=== PATIENT | male | born 1970 | race Caucasian/White ===

== ENCOUNTER 2019-07-13 10:00 | Day surgery (SDC) | payer BC ==
[2019-07-13] VITALS (12 sets, daily range): BP systolic 123–156; BP diastolic 65–89; PULSE 74–84; RESP 15–20; Ht 180.3 cm; Wt 125.0 kg
[~2019-07-13] VITALS: Ht 180.3 cm; Wt 125.0 kg
[~2019-07-13 10:00] MED LIST: AMLO2.5T78 PO
[2019-07-13] MEDS ORDERED: SOD CHLORIDE 0.9% 1,000 ML IV ONE (11:00)
[2019-07-13] MEDS ORDERED: CEFAZOLIN 2 GM/50 ML (PMX) 50 ML IVPB ONE (11:00)
[2019-07-13] MEDS ORDERED: DIPHENHYDRAMINE 50 MG INJ IV PRN (11:30)
[2019-07-13] MEDS ORDERED: FENTAnyl 50 MCG/ML VIAL IV PRN ×3 (11:30)
[2019-07-13] MEDS ORDERED: KETOROLAC 30 MG INJ IV PRN (11:30)
[2019-07-13] MEDS ORDERED: OXYCODONE/ACETAMINOPHEN (5/325) TAB PO PRN ×2 (11:30)
[2019-07-13] MEDS ORDERED: MEPERIDINE 25 MG INJ IV PRN (11:30)
[2019-07-13] MEDS ORDERED: ONDANSETRON 4 MG INJ IV PRN (11:30)
[2019-07-13] MEDS ORDERED: HYDROmorphONE 1 MG/5 ML IV SYRINGE IV PRN ×3 (11:30)
--- NOTE | 2019-07-13 11:30 | PREAC ---
Date/Time of Note Date/Time of Note DATE: 07/13/19 TIME: 11:29 Anesthesia Eval and Record Evaluation Time Pre-Procedure Interview DATE: 07/13/19 TIME: 11:29 Age 49 Sex male NPO: 8 hrs Preoperative diagnosis left inguinal hernia Planned procedure open repair of left inguinal hernia with mesh Past Medical History Past Medical History: Includes Cardio: HTN GI: Morbid obesity Surgery & Anesthesia Issues No known issue Meds Anticoagulation: No Beta Peter within 24 hr: No Reason Beta Peter not given: Pt. not on B-Peter Reported Medications Amlodipine Besylate* (Amlodipine Besylate*) 2.5 Mg Tablet, 2.5 MG PO DAILY 07/13/19 Current Medications Cefazolin Sodium/ Dextrose 50 ml @ 100 mls/hr PRE-OP ONCE IVPB ; Start 07/13/19 at 11:00; Stop 07/13/19 at 11:29 Sodium Chloride 1,000 ml @ 75 mls/hr [id number] ONCE IV Last administered on 07/13/19at 10:55; Admin Dose 75 MLS/HR; Start 07/13/19 at 11:00; Stop 07/14/19 at 00:19 Meds reviewed: Yes Allergies Coded Allergies: No Known Allergy (Unverified , 07/13/19) Allergies Reviewed: Yes Labs/Studies Labs Reviewed: Reviewed by anesthesiologist Result Diagram: 07/13/19 1051 07/13/19 1051 Laboratory Tests 07/13/19 10:51 test: N/A Studies: ECG (n/a), CXR (n/a) Pre-procedure Exam Last vitals Vital Signs Date Temp Pulse Resp B/P (MAP) Pulse Ox O2 O2 Flow FiO2 Time Delivery Rate 07/13/19 98.1 75 16 138/86 95 11:05 (103) Airway: Adequate mouth opening Mallampati: Mallampati II Teeth: Normal Lung: Normal Heart: Normal ASA Physical Status ASA physical status: 2 Emergency: None Planned Anesthetic General/MAC: ETT Nerve block: TAP (left) Planned Pain Management Single shot nerve block Pre-operative Attestations Prior to commencing anesthesia and surgery, the patient was re-evaluated, there was verification of: *The patient's identity *The results of appropriate recent lab work and preoperative vital signs *The above evaluation not changing prior to induction *Anesthetic plan, risk benefits, alternative and complications discussed with patient/family; questions answered; patient/family understands, accepts and wishes to proceed. RHIANNA BONILLA MD Jul 13, 2019 11:30
[2019-07-13] MEDS ORDERED: NEOSTIGMINE 3 MG/3 ML SYRINGE ONE (11:33)
[2019-07-13] MEDS ORDERED: CEFAZOLIN 1 GM INJ ONE (11:33)
[2019-07-13] MEDS ORDERED: DESFLURANE 15 MIN ONE (11:33)
[2019-07-13] MEDS ORDERED: PROPOFOL 20 ML ONE (11:33)
[2019-07-13] MEDS ORDERED: GLYCOPYRROLATE 0.4 MG INJ ONE (11:33)
[2019-07-13] MEDS ORDERED: MIDAZOLAM 1 MG/ML 2 ML INJ ONE (11:33)
[2019-07-13] MEDS ORDERED: ROCURONIUM 50 MG INJ ONE (11:33)
[2019-07-13] MEDS ORDERED: ROPIVACAINE 0.5 % 30 ML VIAL ONE (11:34)
[2019-07-13] MEDS ORDERED: ONDANSETRON 4 MG INJ ONE (11:34)
[2019-07-13] MEDS ORDERED: METOCLOPRAMIDE 10 MG INJ ONE (11:34)
[2019-07-13] MEDS ORDERED: KETOROLAC 30 MG INJ ONE (11:37)
[2019-07-13] MEDS ORDERED: SUCCINYLCHOLINE CHLORIDE 100 MG/5 ML SYG IV ONE (11:56)
[2019-07-13] MEDS ORDERED: HYDROmorphONE 2 MG/ML SYG ONE (12:12)
[2019-07-13] MEDS ORDERED: LIDOCAINE 2% (SDV) 5 ML INJ ONE (12:14)
[2019-07-13] MEDS ORDERED: POLYMYXIN/BACITRACIN 1L IRRIG IRR ONE (12:24)
--- NOTE | 2019-07-13 12:57 | OPR ---
Date/Time of Note Date/Time of Note DATE: 07/13/19 TIME: 12:53 Operative Report Procedure Date: Jul 13, 2019 Preoperative Diagnosis left incarcerated inguinal hernia Postoperative Diagnosis same Operation/Procedure Performed open left incarcerated inguinal hernia repair with large ultrapro hernia system mesh Surgeon see signature line Vegetable Inspector none Anesthesia Type: general Estimated Blood Loss: 0 - 10 ml's Transfusion none Specimen none Grafts/Implants none Complications none Pt Condition Post Procedure: stable Indications This is a 49-year-old male with a left incarcerated inguinal hernia. He request surgical repair. Risks alternatives benefits and personally discussed the patient. In particular due to his increased BMI of 38.4 patient was told that his recurrence rate is fairly high if he gains more weight and is encouraged to lose current weight. Patient expressed understanding and consents to the operat ion. Procedure Description Patient taken to the OR and prepped and draped in usual sterile fashion. Surgic al timeout is performed. IV antibiotics given. Left inguinal oblique incision was made with the 10 blade. Dissection with cautery was carried onto the very thick subcutaneous tissue down to the external oblique fascia. The externally fascia is open with a 15 blade. This incision is extended medially inferiorly lateral superiorly with Metzenbaum scissors. Cord structures identified encircled with a Powers drain. Incarcerated indirect hernia was identified and manually reduced after lysis of adhesions. The disc portion of the ultra pro hernia system mesh was secured in place the running 0 Prolene from the pubic tubercle along the shelving edge of the inguinal ligament. Superiorly the disc is secured to the internal oblique with interrupted 3-0 Vicryl. Onlay mesh was secured in a similar fashion with a running 0 Prolene from the pubic tubercle along the shelving edge of inguinal limit. Straps are created reapproximate around the cord structures with interrupted 0 Prolene to recreate the inguinal ring. Onlay mesh secured to the internal oblique with interrupted 3-0 Vicryl. Externally oblique fascia is closed with 3-0 Vicryl. Jaron's fascia was closed with interrupted 3-0 Vicryl. Skin is closed using inzorb absorbable skin stapler. A tap block was provided by the anesthesiologist at the beginning the case. Steri-Strips and dry dressings were applied. Masood RANKIN Jul 13, 2019 12:57
[2019-07-13] MEDS ORDERED: HYDROCODONE/APAP (5/325) TAB PO ONE (13:00)
--- NOTE | 2019-07-13 14:37 | PAC ---
Date/Time of Note Date/Time of Note DATE: 07/13/19 TIME: 14:36 Post-Anesthesia Notes Post-Anesthesia Note Last documented vital signs Vital Signs Date Temp Pulse Resp B/P (MAP) Pulse Ox O2 O2 Flow FiO2 Time Delivery Rate 07/13/19 98.0 14:25 07/13/19 84 18 123/67 93 Room Air 13:29 (85) Activity: WNL Respiratory function: WNL Cardiovascular function: WNL Mental status: Baseline Pain reasonably controlled: Yes Hydration appropriate: Yes Nausea/Vomiting absent: No RHIANNA BONILLA MD Jul 13, 2019 14:37
== END 2019-07-13 14:05 | disposition home or self-care (01) ==
LOC: SDS 10:00
PROVIDERS: ATTEND Surgery
DX: K40.30 Unilateral inguinal hernia, with obstruction, without gangrene, not specified as recurrent (principal); I10 Essential (primary) hypertension
CPT/HCPCS: 49507; 80053; 85025; 85610; 85730; C1781; J0690; J1170; J1885; J2250; J2405; J2710; J2765; J2795; Z7512; Z7610

== ENCOUNTER 2019-07-17 11:54 | Day surgery (SDC) | payer BC ==
[~2019-07-17] VITALS: Ht 180.3 cm; Wt 122.9 kg
[2019-07-17] VITALS (11 sets, daily range): BP systolic 108–154; BP diastolic 56–92; PULSE 77–94; RESP 15–23; Ht 180.3 cm; Wt 122.9 kg
[~2019-07-17 11:54] MED LIST changes: +CEFAZOLIN 2 GM/50 ML (PMX) 50 ML IVPB ONE; +SOD CHLORIDE 0.9% 1,000 ML IV SCH
[2019-07-17] MEDS ORDERED: POLYMYXIN/BACITRACIN 1L IRRIG ONE (14:17)
[2019-07-17] MEDS ORDERED: BUPIVACAINE 0.25% (MPF) 30 ML INJ ONE (14:17)
[2019-07-17] MEDS ORDERED: SOD CHLORIDE 0.9% 1,000 ML IV SCH (14:38)
[2019-07-17] MEDS ORDERED: KETOROLAC 15 MG INJ IV PRN (15:00)
[2019-07-17] MEDS ORDERED: HYDROCODONE/APAP (5/325) TAB PO ONE ×2 (15:00→16:30)
[2019-07-17] MEDS ORDERED: NALOXONE (0.4 MG/ML) INJ IV PRN (15:00)
[2019-07-17] MEDS ORDERED: HYDROmorphONE 0.2 MG/ML PCA IV SCH (15:00)
[2019-07-17] MEDS ORDERED: CEFAZOLIN 2 GM/50 ML (PMX) 50 ML IVPB SCH (15:00)
--- NOTE | 2019-07-17 15:07 | PREAC ---
Date/Time of Note Date/Time of Note DATE: 07/17/19 TIME: 15:05 Anesthesia Eval and Record Evaluation Time Pre-Procedure Interview DATE: 07/17/19 TIME: 15:05 Age 49 Sex male NPO: 8 hrs Preoperative diagnosis ventral hernia Planned procedure lap ventral hernia repair Past Medical History Past Medical History: Includes Cardio: HTN Pulm: Sleep Apnea (suspected ) GI: Obesity Surgery & Anesthesia Issues No known issue Meds Anticoagulation: No Beta Peter within 24 hr: No Reason Beta Peter not given: Pt. not on B-Peter Reported Medications Amlodipine Besylate* (Amlodipine Besylate*) 2.5 Mg Tablet, 2.5 MG PO DAILY 07/13/19 Current Medications Sodium Chloride 1,000 ml @ 75 mls/hr [id number] IV Last administered on 07/17/19at 12:52; Admin Dose 75 MLS/HR; Start 07/17/19 at 07:00 Meds reviewed: Yes Allergies Coded Allergies: No Known Allergy (Unverified , 07/17/19) Allergies Reviewed: Yes Labs/Studies Labs Reviewed: Reviewed by anesthesiologist test: N/A Pre-procedure Exam Last vitals Vital Signs Date Temp Pulse Resp B/P (MAP) Pulse Ox O2 O2 Flow FiO2 Time Delivery Rate 07/17/19 98.2 91 16 154/88 95 Room Air 13:17 (110) Airway: Adequate mouth opening, Adequate thyromental dist Mallampati: Mallampati IV Teeth: Normal Lung: Normal Heart: Normal ASA Physical Status ASA physical status: 2 Emergency: None Pre-operative Attestations Prior to commencing anesthesia and surgery, the patient was re-evaluated, there was verification of: *The patient's identity *The results of appropriate recent lab work and preoperative vital signs *The above evaluation not changing prior to induction *Anesthetic plan, risk benefits, alternative and complications discussed with patient/family; questions answered; patient/family understands, accepts and wishes to proceed. MIRIAM GIRALDO DO Jul 17, 2019 15:07
[2019-07-17] MEDS ORDERED: LIDOCAINE 2% (SDV) 5 ML INJ ONE (15:17)
[2019-07-17] MEDS ORDERED: ROCURONIUM 50 MG INJ ONE (15:17)
[2019-07-17] MEDS ORDERED: MIDAZOLAM 1 MG/ML 2 ML INJ ONE (15:17)
[2019-07-17] MEDS ORDERED: PROPOFOL 20 ML ONE (15:17)
[2019-07-17] MEDS ORDERED: ROPIVACAINE 0.5 % 30 ML VIAL ONE (15:24)
[2019-07-17] MEDS ORDERED: HYDROmorphONE 1 MG/5 ML IV SYRINGE IV PRN ×3 (15:30)
[2019-07-17] MEDS ORDERED: METOCLOPRAMIDE 10 MG INJ IV PRN (15:30)
[2019-07-17] MEDS ORDERED: ONDANSETRON 4 MG INJ IV PRN (15:30)
[2019-07-17] MEDS ORDERED: LABETALOL HCL 20MG INJ IV PRN (15:30)
[2019-07-17] MEDS ORDERED: ROPIVACAINE 0.2% 20 ML VIAL ONE (15:31)
[2019-07-17] MEDS ORDERED: CEFAZOLIN 1 GM INJ ONE (15:33)
[2019-07-17] MEDS ORDERED: SUGAMMADEX SODIUM 200 MG/2 ML VIAL IV ONE (16:10)
--- NOTE | 2019-07-17 16:10 | OPR ---
Date/Time of Note Date/Time of Note DATE: 07/17/19 TIME: 16:07 Operative Report Procedure Date: Jul 17, 2019 Preoperative Diagnosis incarcerated ventral hernia Postoperative Diagnosis same Operation/Procedure Performed 1. laparoscopic incarcerated ventral hernia repair 2. implantation of 15 x 15 cm polypropylene mesh Surgeon see signature line Software Support Engineer Dean Wright Anesthesia Type: general Estimated Blood Loss: 0 - 10 ml's Transfusion none Specimen none Grafts/Implants none Complications none Pt Condition Post Procedure: stable Indications This is a 49-year-old male with a large incarcerated ventral hernia. He request surgical repair. Risks alternatives benefits and personal were discussed the patient. Patient expressed understanding and consents to the operation. Procedure Description Patient is taken to the OR and prepped and draped in usual sterile fashion. Surgical time was performed. IV antibiotics given. Left upper quadrant 5 mm transverse incision was made in the left subcostal midclavicular line. Using a 5 mm optical trocar optical entry is performed. Pneumoperitoneum is established. Left flank 12 mm optical trochars placed under direct visualization. Left lower quadrant 5 mm optical trochars placed under direct visualization. Upon initial inspection there is incarcerated contents. Lap scopic lysis of adhesions performed. This allowed manual reduction of the incarcerated hernia contents. The hernia defect was then identified. The defect was closed primarily using a #1 Vicryl suture using Endo Close and laparoscopic techniques. After primary closure of the defect underlay mesh was 15 x 15 cm polypropylene mesh was secured in place with secure strap. Approximately 4-5 centers of coverage in all directions were ensured. Good hemostasis status. All ports removed under direct visualization. Skin incisions were closed with skin tootie. [facility]. Dry dressings were applied. Masood RANKIN Jul 17, 2019 16:10
[2019-07-17] MEDS ORDERED: FENTAnyl 50 MCG/ML VIAL ONE (16:20)
[2019-07-17] MEDS ORDERED: KETOROLAC 30 MG INJ ONE (16:21)
--- NOTE | 2019-07-17 16:33 | PAC ---
Date/Time of Note Date/Time of Note DATE: 07/17/19 TIME: 16:30 Post-Anesthesia Notes Post-Anesthesia Note Last documented vital signs Vital Signs Date Temp Pulse Resp B/P (MAP) Pulse Ox O2 O2 Flow FiO2 Time Delivery Rate 07/17/19 98 91 16 143/75 95 Room Air 1631 Activity: WNL Respiratory function: WNL Cardiovascular function: WNL Mental status: Baseline Pain reasonably controlled: Yes Hydration appropriate: Yes Nausea/Vomiting absent: Yes MIRIAM GIRALDO DO Jul 17, 2019 16:33
== END 2019-07-17 17:29 | disposition home or self-care (01) ==
LOC: SDS 11:54
PROVIDERS: ATTEND Surgery
DX: K43.6 Other and unspecified ventral hernia with obstruction, without gangrene (principal); I10 Essential (primary) hypertension
CPT/HCPCS: 49653; J0690; J1170; J1885; J2250; J2405; J2765; J2795; J3010; Z7512; Z7610